=== PATIENT | male | born 1950 | race Caucasian/White ===

== ENCOUNTER → 2018-05-14 | Outpatient (REF) | payer MEDICARE ==
[2018-05-14 19:30] LABS: APPEARANCE, URINE CLEAR (CLEAR); BACTERIA, URINE AUTO NEGATIVE (NEGATIVE); BILIRUBIN, URINE AUTO NEGATIVE (NEGATIVE); BLOOD, URINE BLOOD 2+ (NEGATIVE); COLOR, URINE STRAW (YELLOW); GLUCOSE, URINE (UA) AUTO NEGATIVE (NEGATIVE); KETONE, URINE AUTO NEGATIVE (NEGATIVE); LEUKOCYTE ESTERASE, URINE AUTO NEGATIVE (NEGATIVE); NITRITE, URINE AUTO NEGATIVE (NEGATIVE); PROTEIN, URINE AUTO NEGATIVE (NEGATIVE); RBC, URINE AUTO 2 /HPF (0-3); SPECIFIC GRAVITY URINE AUTO 1.005 (1.002-1.035); SQUAMOUS EPITHELIAL CELL UR AU 0 /HPF (0-6); UROBILINOGEN, URINE AUTO 0.2 mg/dL (0.0-2.0); WBC, URINE AUTO 0 /HPF (0-3)
== END ==
LOC: M SMT 17:08
DX: R97.20 Elevated prostate specific antigen [PSA] (principal); Z79.899 Other long term (current) drug therapy
CPT/HCPCS: 81001

== ENCOUNTER → 2018-06-18 | Outpatient (CLI) | payer MEDICARE ==
[2018-06-20 14:22] LABS: PSA FREE 1.52 ng/mL; PSA TOTAL 4.9 ng/mL (0.0-4.0)
== END ==
LOC: M SMT 14:38
DX: R97.20 Elevated prostate specific antigen [PSA] (principal)
CPT/HCPCS: 84154

== ENCOUNTER → 2018-07-16 | Outpatient (CLI) | payer MEDICARE ==
--- NOTE | 2018-07-16 13:31 | REP ---
Prostate sonography: History: Elevated PSA. Sonographic findings: Trans rectal prostate sonography demonstrates unremarkable seminal vesicles. Prostate gland is heterogeneously enlarged with calcifications and cystic changes noted. Glandular dimensions are measured at 5.2 x 5.2 x 6.2 cm with a calculated glandular volume of 86.6 ml. Transrectal sonographic guidance provided to Dr. Crook who performed trans rectal ultrasound guided needle biopsy procedure . Electronically Signed by Saulo Kinsey MD 07/16/2018 01:21 P
== END ==
LOC: M SMT PRO 10:01
PROVIDERS: ATTEND Nurse Practitioner Family
DX: N41.9 Inflammatory disease of prostate, unspecified (principal)
CPT/HCPCS: 55700; 76872; 76942; G0416

== ENCOUNTER → 2020-10-29 | Outpatient (REF) | payer MEDICARE ==
[2020-10-29 18:23] LABS: BLOOD UREA NITROGEN 12 MG/DL (7-18); GLOMERULAR FILTRATION RATE > 60.0 (>42)
== END ==
LOC: M LAB REF 17:11
PROVIDERS: ATTEND Internal Medicine Pulmonary Disease
DX: R94.2 Abnormal results of pulmonary function studies (principal)

== ENCOUNTER → 2020-10-31 | Outpatient (CLI) | payer MEDICARE ==
--- NOTE | 2020-11-01 11:27 | SLEEPCENT ---
NOCTURNAL POLYSOMNOGRAPHY DATE: 10/31/2020 ORDERED BY: Ki Grant D.O. Nocturnal polysomnography was performed for evaluation of sleep physiology in this patient with a history of excessive somnolence and nonrestorative sleep. 6 hours and 51 minutes of data were reviewed. There were 367.5 minutes of sleep identified. Sleep latency was normal at 20 minutes. REM latency was short at 58 minutes. Sleep architecture was well preserved with minor fragmentation and three REM cycles. Overall sleep efficiency was 90.7%. The electrocardiogram showed a sinus rhythm with an average heart rate of 75 beats per minute. EEG showed normal waveforms for wake and sleep. There were 249 respiratory events identified of 10 seconds in duration or greater for an apnea-hypopnea index of 40.7. The events were obstructive, not exclusive to sleep stage, more frequent, but not exclusive to the supine posture. Arousals from respiratory events occurred 7.3 times per hour. Oxygen desaturations were seen into the 80s with some minor activity in the limb leads and snoring was noted over the entire study. IMPRESSION: Severe obstructive sleep apnea syndrome (G47.33), apnea-hypopnea index 40.7. RECOMMENDATION: The patient should be encouraged to return to [facility] for [facility]. In the interim, alcohol and sedative avoidance should be practiced and caution exercised during the operation of motor vehicles.
== END ==
LOC: M SLEEP 20:00
PROVIDERS: ATTEND Internal Medicine Pulmonary Disease
DX: G47.33 Obstructive sleep apnea (adult) (pediatric) (principal)

== ENCOUNTER → 2020-11-11 | Outpatient (CLI) | payer MEDICARE ==
[~2020-11-11] MED LIST: AMLO1TAB24; ISOVUE-370 76% 100ML VIAL As Ordered ONE; METF500T13; PRAV40TA2
--- NOTE | 2020-11-11 18:08 | REP ---
INDICATION: ABNORMAL RESULTS OF PULMONARY FUNCTION STUDIES. COMPARISON: None. TECHNIQUE: Chest CT with IV contrast, CT pulmonary artery angiography. FINDINGS: There are no emboli in the pulmonary trunk or central pulmonary arteries. There are no emboli in the pulmonary artery lobar segment branches. The pulmonary trunk is not dilated measuring 25 mm in diameter. There are no infiltrates or pleural effusions. There are no lung masses or nodules. There is no mediastinal, hilar or axillary lymph node enlargement. The thoracic aorta is unremarkable. Cardiac size is normal. There is no pericardial effusion. The visualized areas of the gallbladder and hepatic parenchyma are unremarkable. Visualized areas of the pancreas and spleen are unremarkable. The adrenals are unremarkable. There is a Bosniak type 1 2.5 cm left renal upper pole cyst and a Bosniak type 1 13 mm left renal upper pole cyst. There is a 13 mm nodule in the cortex of the right renal upper pole, not clearly a cyst. I would recommend follow-up ultrasound for further evaluation. IMPRESSION: There are no pulmonary emboli. The pulmonary trunk is not dilated. There is a 13 mm nodule at the upper pole of the right kidney, not clearly a cyst. I would recommend ultrasound follow-up. There are 2 Bosniak type 1 cysts in the upper pole of the left kidney. <Electronically signed by Mango Hernandez > 11/11/20 [id number]
== END ==
LOC: M RAD 17:07
PROVIDERS: ATTEND Internal Medicine Pulmonary Disease
DX: Q61.02 Congenital multiple renal cysts (principal); R94.2 Abnormal results of pulmonary function studies
CPT/HCPCS: 71275; Q9967

== ENCOUNTER 2020-11-12 11:04 | Emergency (ER) | payer MEDICARE ==
[~2020-11-12] VITALS: Ht 182.9 cm; Wt 137.7 kg
[2020-11-12] MEDS ORDERED: AMLO1TAB24 (11:27)
[2020-11-12] MEDS ORDERED: METF500T13 (11:27)
[2020-11-12] MEDS ORDERED: PRAV40TA2 (11:27)
[2020-11-12] MEDS ORDERED: diphenhydrAMINE 50MG CAP PO ONE (12:20)
[2020-11-12 13:35] VITALS: BP 135/98
== END 2020-11-12 13:37 | disposition home or self-care (01) ==
LOC: M ED 11:04
DX: R22.0 Localized swelling, mass and lump, head (principal); T78.40XA Allergy, unspecified, initial encounter; X58.XXXA Exposure to other specified factors, initial encounter; Y92.89 Other specified places as the place of occurrence of the external cause; E11.9 Type 2 diabetes mellitus without complications; I10 Essential (primary) hypertension; Z79.899 Other long term (current) drug therapy; Z79.84 Long term (current) use of oral hypoglycemic drugs

== ENCOUNTER → 2020-12-13 | Outpatient (CLI) | payer MEDICARE ==
[~2020-12-13] MED LIST changes: -ISOVUE-370 76% 100ML VIAL As Ordered ONE
--- NOTE | 2020-12-14 16:24 | SLEEPCENT ---
NOCTURNAL POLYSOMNOGRAPHY DATE: 12/13/2020 ORDERED BY: Ki Grant D.O. Nocturnal polysomnography was performed for the titration of pressure therapy in this patient with obstructive sleep apnea syndrome with apnea-hypopnea index of 40.7. For testing a ResMed Quattro full face mask of large size was used, 4 cm of water pressure were applied to the circuit, and the lights were extinguished. 6 hours and 48 minutes of data were reviewed. There were 194 minutes of sleep identified. Sleep latency was prolonged at 61 minutes. REM latency was short at 41 minutes. Sleep architecture was fair. There was a prolonged period of wake between 12:30 and 2:30, resulting in a reduced sleep efficiency of 48.1%. The electrocardiogram showed a sinus rhythm with an average heart rate of 85 beats per minute. EEG showed normal waveforms for wake and sleep. Respiratory events prompted increases in pressure therapy. Best sleep was seen on a CPAP pressure of +7. There were some mild hypopneic events in REM at this pressure, but no significant oxygen desaturations appreciated. IMPRESSION: Obstructive sleep apnea syndrome (G47.33). RECOMMENDATION: Nightly use of pressure therapy 7 cm of water.
== END ==
LOC: M SLEEP 20:00
PROVIDERS: ATTEND Internal Medicine Pulmonary Disease
DX: G47.33 Obstructive sleep apnea (adult) (pediatric) (principal)

== ENCOUNTER → 2020-12-20 | Outpatient (CLI) | payer MEDICARE ==
--- NOTE | 2020-12-20 12:29 | REP ---
INDICATION: ABN IMAGING. CT study of the chest from November 11, 2020 showed a possible cyst versus solid lesion in the upper pole the right kidney and 2 benign appearing cysts in the upper pole left kidney. Urinary tract sonography was recommended. COMPARISON: Comparison CT study November 11, [address] No other comparison imaging.. TECHNIQUE: Urinary tract sonography. FINDINGS: Scanning at the level of the urinary bladder shows no abnormality. Renal cortical echogenicity pattern is normal bilaterally and contours are smooth. There is no evidence of hydronephrosis on either side. No mass is observed by ultrasound. There is a small 1.5 cm cyst in the medial aspect of the upper pole the right kidney but this does not appear to correspond with the location of the possible cyst seen at the apex of the upper pole on recent CT study. There is no sonographic correlate for this CT finding. In the left kidney there is a 2.2 x 2.1 x 2.0 cm cyst visible by ultrasound. The CT study showed 2 cysts in the left kidney. Only 1 of these is visualized sonographically. No Angy renal disease is seen.. The right kidney measures 12.1 x 5.4 x 4.9 cm. Left renal dimensions are 12.9 x 6.2 x 6.4 cm. IMPRESSION: There are small cysts seen bilaterally. Kidneys are less well visualized by ultrasound than on CT scanning. Only 1 of the left renal cysts is observed sonographically and I do not believe we are seeing the possible cystic lesion in the upper pole of the right kidney which was observed by CT. Dedicated urinary tract CT study with pre and postcontrast imaging suggested to create a accurate baseline. Follow-up imaging may be warranted.. <Electronically signed by Kamaljit Kinsey > 12/20/20 [id number]
== END ==
LOC: M RAD 11:50
PROVIDERS: ATTEND Internal Medicine Pulmonary Disease
DX: N28.1 Cyst of kidney, acquired (principal); N28.89 Other specified disorders of kidney and ureter

== ENCOUNTER → 2021-02-09 | Outpatient (CLI) | payer MEDICARE ==
[~2021-02-09] MED LIST changes: +ALBU8.5H INH; +SYMB16INH INH
[2021-02-09 13:30] LABS: APPEARANCE, URINE CLEAR (CLEAR); BACTERIA, URINE AUTO NEGATIVE (NEGATIVE); BILIRUBIN, URINE AUTO NEGATIVE (NEGATIVE); BLOOD, URINE BLOOD 3+ (NEGATIVE); CALCIUM OXALATE CRYSTALS SMALL; COLOR, URINE YELLOW (YELLOW); GLUCOSE, URINE (UA) AUTO NEGATIVE (NEGATIVE); KETONE, URINE AUTO NEGATIVE (NEGATIVE); LEUKOCYTE ESTERASE, URINE AUTO NEGATIVE (NEGATIVE); MUCUS, URINE SMALL (NEGATIVE); NITRITE, URINE AUTO NEGATIVE (NEGATIVE); PROTEIN, URINE AUTO NEGATIVE (NEGATIVE); RBC, URINE AUTO 13 /HPF (0-3); SPECIFIC GRAVITY URINE AUTO 1.019 (1.002-1.035); SQUAMOUS EPITHELIAL CELL UR AU 0 /HPF (0-6); UROBILINOGEN, URINE AUTO 0.2 mg/dL (0.0-2.0); WBC, URINE AUTO 0 /HPF (0-3)
[2021-02-09 14:22] LABS: BLOOD UREA NITROGEN 13 MG/DL (7-18); CALCIUM LEVEL 9.3 MG/DL (8.8-10.2); CARBON DIOXIDE LEVEL 28 MEQ/L (21-32); CHLORIDE LEVEL 107 MEQ/L (98-107); CREATININE FOR GFR 0.93 MG/DL (0.70-1.30); GLOMERULAR FILTRATION RATE > 60.0 (>42); GLUCOSE, FASTING 101 MG/DL (70-100); POTASSIUM SERUM 4.2 MEQ/L (3.5-5.1); SODIUM LEVEL 143 MEQ/L (136-145)
[2021-02-11 00:11] LABS: PSA % FREE 21.3 % (.); PSA FREE 1.17 ng/mL; PSA TOTAL 5.5 ng/mL (0.0-4.0)
== END ==
LOC: M PLALAB 09:22
PROVIDERS: ATTEND Nurse Practitioner Family
DX: R35.0 Frequency of micturition (principal); N28.9 Disorder of kidney and ureter, unspecified; R97.20 Elevated prostate specific antigen [PSA]
CPT/HCPCS: 36415; 51798; 80048; 81001; 84154; 87086; G0463

== ENCOUNTER → 2021-02-14 | Outpatient (CLI) | payer MEDICARE | LOC: M PLAIMG 09:07 | PROVIDERS: ATTEND Nurse Practitioner Family | DX: N28.9 Disorder of kidney and ureter, unspecified (principal); R31.29 Other microscopic hematuria; Z53.9 Procedure and treatment not carried out, unspecified reason ==

== ENCOUNTER → 2021-02-16 | Outpatient (CLI) | payer MEDICARE ==
[~2021-02-16] MED LIST changes: +ISOVUE-370 76% 100ML VIAL As Ordered ONE
--- NOTE | 2021-02-16 17:25 | REP ---
INDICATION: RENAL LESION. COMPARISON: Multiple TECHNIQUE: Before and after contrast 100 cc Isovue 370 FINDINGS: Lung bases are clear Pre contrast enhanced portion examination shows a patent splenic densities to be within normal limits. There is a simple cyst in left kidney. There is a hyperdense cyst in the right kidney. These were imaged on the chest CT of 11/11/2020 and are unchanged. There is no nephrolithiasis or cholelithiasis. There are no urinary bladder calcifications. Contrast-enhanced portion exam shows the liver, gallbladder, spleen, pancreas, and adrenal glands are within normal limits. There are multiple bilateral renal cysts. No cyst shows perceivable contrast-enhancement. Some cysts are too small for precise CT characterization. The abdominal aorta and para-aortic regions are within normal limits. The bowel loops and the mesenteries are within normal limits. There is no free fluid or free air. The imaged osseous structures are within normal limits for the patient's age. IMPRESSION: Bilateral renal cysts some of which are indeterminate. Three-month follow-up pre and post contrast enhanced renal MRI is recommend. <Electronically signed by Zeke Monroe > 02/16/21 [id number]
== END ==
LOC: M RAD 16:17
PROVIDERS: ATTEND Nurse Practitioner Family
DX: N28.1 Cyst of kidney, acquired (principal); R31.29 Other microscopic hematuria
CPT/HCPCS: 74178; Q9967

== ENCOUNTER 2021-02-17 06:42 | Emergency (ER) | payer MEDICARE ==
[~2021-02-17] VITALS: Ht 182.9 cm; Wt 137.9 kg
[~2021-02-17 06:42] MED LIST changes: -ALBU8.5H INH; -ISOVUE-370 76% 100ML VIAL As Ordered ONE; -SYMB16INH INH
[2021-02-17] MEDS ORDERED: SYMB16INH INH (06:51)
[2021-02-17] MEDS ORDERED: ALBU8.5H INH (06:51)
[2021-02-17] MEDS ORDERED: FAMOTIDINE INJ 20MG/2ML VIAL (S0028 PER 1) IVP ONE (07:25)
[2021-02-17] MEDS ORDERED: dexameTHASONE 20MG/5ML VIAL (J1100 PER 1MG) IV ONE (07:25)
[2021-02-17] MEDS ORDERED: diphenhydrAMINE 50MG/ML VIAL (J1200) IV ONE (07:25)
[2021-02-17 09:45] VITALS: BP 131/74
== END 2021-02-17 09:47 | disposition home or self-care (01) ==
LOC: M ED 06:42
DX: R22.1 Localized swelling, mass and lump, neck (principal); T50.8X5A Adverse effect of diagnostic agents, initial encounter; E11.9 Type 2 diabetes mellitus without complications; I10 Essential (primary) hypertension; G47.33 Obstructive sleep apnea (adult) (pediatric); Z79.84 Long term (current) use of oral hypoglycemic drugs; Z79.899 Other long term (current) drug therapy; Z91.041 Radiographic dye allergy status
CPT/HCPCS: 96374; 96375; 99284; J1100; J1200

== ENCOUNTER → 2021-02-18 | Outpatient (REF) | payer MEDICARE ==
[~2021-02-18] MED LIST changes: +ALBU8.5H INH; +SYMB16INH INH
[2021-02-18 14:28] LABS: APPEARANCE, URINE CLEAR (CLEAR); BACTERIA, URINE AUTO NEGATIVE (NEGATIVE); BILIRUBIN, URINE AUTO NEGATIVE (NEGATIVE); BLOOD, URINE BLOOD 2+ (NEGATIVE); COLOR, URINE YELLOW (YELLOW); GLUCOSE, URINE (UA) AUTO NEGATIVE (NEGATIVE); KETONE, URINE AUTO NEGATIVE (NEGATIVE); LEUKOCYTE ESTERASE, URINE AUTO NEGATIVE (NEGATIVE); NITRITE, URINE AUTO NEGATIVE (NEGATIVE); PROTEIN, URINE AUTO NEGATIVE (NEGATIVE); RBC, URINE AUTO 23 /HPF (0-3); SPECIFIC GRAVITY URINE AUTO 1.018 (1.002-1.035); SQUAMOUS EPITHELIAL CELL UR AU 0 /HPF (0-6); UROBILINOGEN, URINE AUTO 0.2 mg/dL (0.0-2.0); WBC, URINE AUTO 1 /HPF (0-3)
== END ==
LOC: M SMT 13:14
PROVIDERS: ATTEND Nurse Practitioner Family
DX: R31.29 Other microscopic hematuria (principal)
CPT/HCPCS: 81001; 87086; 88108; G0463

== ENCOUNTER → 2021-05-23 | Outpatient (CLI) | payer MEDICARE ==
--- NOTE | 2021-05-23 12:15 | REP ---
INDICATION: RENAL LESION. COMPARISON: 12/20/2020. TECHNIQUE: Real-time sonographic evaluation of the kidneys is performed. FINDINGS: Renal cortical echogenicity pattern is normal bilaterally and contours are smooth. There is no hydronephrosis bilaterally. There is a stable hypoechoic nodule in the upper pole the right kidney 1.3 x 1.0 x 1.5 cm. There is a stable hypoechoic nodule in the upper pole of the left kidney 2.3 x 2.0 x 2.6 cm. The right kidney measures 13.1 x 5.3 x 4.8 cm. Left renal dimensions are 12.8 x 6.3 x 5.9 cm. The urinary bladder is unremarkable. Prostate measures 5.9 x 5.7 x 6.5 cm for total volume of 114 cc. IMPRESSION: Stable ultrasound findings compared to 12/20/2020. <Electronically signed by Mnago Vázquez > 05/23/21 [id number]
== END ==
LOC: M RAD 10:45
PROVIDERS: ATTEND Nurse Practitioner Family
DX: N28.9 Disorder of kidney and ureter, unspecified (principal)

== ENCOUNTER → 2022-07-07 | Outpatient (REF) | payer MEDICARE ==
[2022-07-07 19:50] LABS: VITAMIN B12 LEVEL 453 PG/ML (211-911)
[2022-07-07 20:09] LABS: FOLATE 18.4 NG/ML (>5.4)
== END ==
LOC: M LAB REF 16:34
PROVIDERS: ATTEND Family Medicine
DX: R41.3 Other amnesia (principal)

== ENCOUNTER → 2023-11-05 | Outpatient (CLI) | payer MEDICARE | LOC: M RAD 10:58 | PROVIDERS: ATTEND Family Medicine | DX: N28.1 Cyst of kidney, acquired (principal) ==

== ENCOUNTER → 2024-04-14 | Outpatient (REF) | payer MEDICARE ==
[2024-04-14 18:09] LABS: APPEARANCE, URINE CLEAR (CLEAR); BACTERIA, URINE AUTO NEGATIVE (NEGATIVE); BILIRUBIN, URINE AUTO NEGATIVE (NEGATIVE); BLOOD, URINE BLOOD NEGATIVE (NEGATIVE); COLOR, URINE YELLOW (YELLOW); GLUCOSE, URINE (UA) AUTO NEGATIVE (NEGATIVE); KETONE, URINE AUTO NEGATIVE (NEGATIVE); LEUKOCYTE ESTERASE, URINE AUTO NEGATIVE (NEGATIVE); MUCUS, URINE SMALL (NEGATIVE); NITRITE, URINE AUTO NEGATIVE (NEGATIVE); PROTEIN, URINE AUTO 1+ mg/dL (NEGATIVE); RBC, URINE AUTO 4 /HPF (0-3); SPECIFIC GRAVITY URINE AUTO 1.019 (1.002-1.035); SQUAMOUS EPITHELIAL CELL UR AU 0 /HPF (0-6); UROBILINOGEN, URINE AUTO 0.2 mg/dL (0.0-2.0); WBC, URINE AUTO 1 /HPF (0-3)
== END ==
LOC: M SMT 17:06
PROVIDERS: ATTEND Urology
DX: R39.9 Unspecified symptoms and signs involving the genitourinary system (principal)

== ENCOUNTER → 2024-07-21 | Outpatient (CLI) | payer MEDICARE | LOC: M CARPUL 14:53 | PROVIDERS: ATTEND Family Medicine | DX: I71.9 Aortic aneurysm of unspecified site, without rupture (principal) ==

== ENCOUNTER → 2024-09-12 | Outpatient (CLI) | payer MEDICARE | LOC: M RAD 11:28 | PROVIDERS: ATTEND Internal Medicine Pulmonary Disease | DX: J44.9 Chronic obstructive pulmonary disease, unspecified (principal) ==

== ENCOUNTER → 2025-03-05 | Outpatient (REF) | payer MEDICARE ==
[~2025-03-05] MED LIST changes: -AMLO1TAB24; +AMLO1TAB24 PO; +GINK125C PO; +IRON240T PO; -METF500T13; +METF500T13 PO; -PRAV40TA2; +PRAV40TA85 PO; +SAW160CA23 PO; +SPIR12.9 INH; +TAMS-18 PO; +THERTAB52 PO
== END ==
LOC: M LAB REF 17:29
PROVIDERS: ATTEND Family Medicine
DX: M79.672 Pain in left foot (principal)

== ENCOUNTER → 2025-04-08 | Outpatient (CLI) | payer MEDICARE ==
[2025-04-09 11:38] LABS: PSA % FREE 20.0 % (calc) (>25); PSA FREE 1.8 ng/mL; PSA TOTAL 8.9 ng/mL (< OR = 4.0)
== END ==
LOC: M PLALAB 10:18
PROVIDERS: ATTEND Urology
DX: R97.20 Elevated prostate specific antigen [PSA] (principal)

== ENCOUNTER → 2025-04-13 | Outpatient (REF) | payer MEDICARE ==
[2025-04-13 13:58] LABS: APPEARANCE, URINE CLEAR (CLEAR); BACTERIA, URINE AUTO NEGATIVE (NEGATIVE); BILIRUBIN, URINE AUTO NEGATIVE (NEGATIVE); BLOOD, URINE BLOOD 2+ (NEGATIVE); GLUCOSE, URINE (UA) AUTO NEGATIVE (NEGATIVE); KETONE, URINE AUTO NEGATIVE (NEGATIVE); LEUKOCYTE ESTERASE, URINE AUTO NEGATIVE (NEGATIVE); MUCUS, URINE SMALL (NEGATIVE); NITRITE, URINE AUTO NEGATIVE (NEGATIVE); PROTEIN, URINE AUTO NEGATIVE (NEGATIVE); RBC, URINE AUTO 3 /HPF (0-3); SPECIFIC GRAVITY URINE AUTO 1.018 (1.002-1.035); SQUAMOUS EPITHELIAL CELL UR AU 0 /HPF (0-6); UROBILINOGEN, URINE AUTO 0.2 mg/dL (0.0-2.0); WBC, URINE AUTO 0 /HPF (0-3)
== END ==
LOC: M SMT 12:38
PROVIDERS: ATTEND Urology
DX: R97.20 Elevated prostate specific antigen [PSA] (principal)

== ENCOUNTER → 2025-04-20 | Outpatient (CLI) | payer MEDICARE ==
[~2025-04-20] MED LIST changes: +PROHANCE 279.3MG/ML 15ML VIAL As Ordered ONE; +PROHANCE 279.3MG/ML 5ML VIAL As Ordered ONE
== END ==
LOC: M RAD 11:06
PROVIDERS: ATTEND Urology
DX: R97.20 Elevated prostate specific antigen [PSA] (principal); R93.89 Abnormal findings on diagnostic imaging of other specified body structures
CPT/HCPCS: 72197; A9576

== ENCOUNTER → 2025-05-15 | Outpatient (REF) | payer MEDICARE ==
[~2025-05-15] MED LIST changes: -PROHANCE 279.3MG/ML 15ML VIAL As Ordered ONE; -PROHANCE 279.3MG/ML 5ML VIAL As Ordered ONE
== END ==
LOC: M LAB REF 13:58
PROVIDERS: ATTEND Family Medicine
DX: M79.672 Pain in left foot (principal)

== ENCOUNTER → 2025-05-21 | Outpatient (CLI) | payer MEDICARE | LOC: M RAD 11:53 | PROVIDERS: ATTEND Family Medicine | DX: R06.2 Wheezing (principal) ==

== ENCOUNTER → 2025-06-23 | Outpatient (REF) | payer MEDICARE | LOC: M SMT 12:38 | PROVIDERS: ATTEND Urology | DX: R97.20 Elevated prostate specific antigen [PSA] (principal); C61 Malignant neoplasm of prostate ==

== ENCOUNTER → 2025-07-10 | Outpatient (REF) | payer MEDICARE ==
[2025-07-10 14:16] LABS: APPEARANCE, URINE HAZY (CLEAR); BACTERIA, URINE AUTO NEGATIVE (NEGATIVE); BILIRUBIN, URINE AUTO NEGATIVE (NEGATIVE); BLOOD, URINE BLOOD 3+ (NEGATIVE); GLUCOSE, URINE (UA) AUTO NEGATIVE (NEGATIVE); KETONE, URINE AUTO NEGATIVE (NEGATIVE); LEUKOCYTE ESTERASE, URINE AUTO NEGATIVE (NEGATIVE); MUCUS, URINE SMALL (NEGATIVE); NITRITE, URINE AUTO NEGATIVE (NEGATIVE); PROTEIN, URINE AUTO NEGATIVE (NEGATIVE); RBC, URINE AUTO 21 /HPF (0-3); SPECIFIC GRAVITY URINE AUTO 1.023 (1.002-1.035); SQUAMOUS EPITHELIAL CELL UR AU 0 /HPF (0-6); UROBILINOGEN, URINE AUTO 0.2 mg/dL (0.0-2.0); WBC, URINE AUTO 1 /HPF (0-3)
== END ==
LOC: M SMT 13:21
PROVIDERS: ATTEND Urology
DX: R39.9 Unspecified symptoms and signs involving the genitourinary system (principal)